=== PATIENT | female | born 1970 | race African-American/Black ===

== ENCOUNTER 2021-12-17 19:30 | Emergency (ER) | payer SELFPAY ==
[2021-12-17] MEDS ORDERED: Gentamicin 0.3% Ophth Soln 5 ML Bottle ONE (22:20)
[2021-12-17] MEDS ORDERED: Gentamicin 0.3% Ophth Soln 5 ML Bottle EYELF STA (22:20)
[2021-12-18] MEDS ORDERED: Gentamicin 0.3% Ophth Soln 5 ML Bottle EYELF SCH (06:00)
== END 2021-12-17 22:37 | disposition home or self-care (01) ==
LOC: MW.ED 19:30
DX: H10.502 Unspecified blepharoconjunctivitis, left eye (principal); I10 Essential (primary) hypertension
CPT/HCPCS: 99282; A9270; 99283

== ENCOUNTER 2022-01-02 20:36 | Emergency (ER) | payer SELFPAY ==
[2022-01-02] MEDS ORDERED: Sodium Chloride 0.9% 1,000 ML IV ONE (21:26)
[2022-01-02 21:28] LABS: BLOOD UREA NITROGEN,BUN 24 mg/dL (7.0-18.0); CARBON DIOXIDE,CO2 26.4 mmol/L (21.0-32.0); CHLORIDE,CL 103 mmol/L (98-107); GLUCOSE RANDOM 124 mg/dL (74-106); LIPASE 56 U/L (73-393); POTASSIUM,K 3.4 mmol/L (3.5-5.1); SODIUM,NA 142 mmol/L (136-145)
[2022-01-02] MEDS ORDERED: Iopamidol 755 MG/ML 500 ML Multipack Bottle IVPUSH ONE (21:42)
[2022-01-02] MEDS ORDERED: Ondansetron 4 MG/2 ML SDV IVPUSH ONE ×2 (22:19→23:13)
== END 2022-01-02 23:31 | disposition home or self-care (01) ==
LOC: MW.ED 20:36
DX: D25.9 Leiomyoma of uterus, unspecified (principal); K56.609 Unspecified intestinal obstruction, unspecified as to partial versus complete obstruction; R11.10 Vomiting, unspecified; R19.7 Diarrhea, unspecified
CPT/HCPCS: 36415; 74177; 80053; 81001; 83690; 84703; 85025; 96374; 99284; J2405; J7030; Q9967

== ENCOUNTER 2023-06-18 05:10 | Emergency (ER) | payer SELFPAY ==
[2023-06-18] MEDS ORDERED: Ibuprofen 600 MG Tab PO ONE (05:27)
[2023-06-18 05:34] LABS: APPEARANCE,URINE CLOUDY; COLOR,URINE YELLOW; GLUCOSE,URINE NEGATIVE (NEGATIVE); KETONES,URINE TRACE mg/dL (NEGATIVE); LEUKOCYTE ESTERASE,URINE LARGE (NEGATIVE); NITRITE,URINE POSITIVE (NEGATIVE); OCCULT BLOOD,URINE MODERATE (NEGATIVE); PROTEIN,URINE 100 mg/dL (NEGATIVE)
[2023-06-18 05:43] LABS: BILIRUBIN,URINE SMALL (NEGATIVE); RBC,URINE 30-40 (0-2/HPF)
[2023-06-18 05:44] LABS: BACTERIA,URINE 3+ (NEGATIVE); EPITHELIAL CELLS,URINE FEW (NONE-FEW); WBC,URINE TO NUMEROUS TO COUNT (0-5/HPF)
[2023-06-18 06:12] LABS: CORONAVIRUS COVID-19 NAA NEGATIVE (NEGATIVE); INFLUENZA A NAA NEGATIVE (NEGATIVE); INFLUENZA B NAA NEGATIVE (NEGATIVE)
[2023-06-18] MEDS ORDERED: Amoxicillin/Clavulanate K 875-125 MG Tab PO ONE (06:23)
== END 2023-06-18 06:30 | disposition home or self-care (01) ==
LOC: MW.ED 05:10
DX: B37.49 Other urogenital candidiasis (principal); I10 Essential (primary) hypertension; E66.9 Obesity, unspecified; Z68.41 Body mass index [BMI] 40.0-44.9, adult; Z20.822 Contact with and (suspected) exposure to COVID-19
CPT/HCPCS: 0240U; 81001; 99284; A9270; 99283